=== PATIENT | male | born 1995 | race Hispanic/Latino ===

== ENCOUNTER 2017-10-12 21:40 | Emergency (ER) | payer OTHER ==
[~2017-10-12 21:40] MED LIST: Naloxone 0.4 mg/ml Inj (Adult) IVP STA
--- NOTE | 2017-10-12 21:59 | ED PDOC ---
Arrival/HPI - General Time Seen by Provider: 10/12/17 21:42 Historian: Patient, Other (Friend) - History of Present Illness Narrative History of Present Illness (Text): 10/12/17 21:35 Rikki Wheat is a 22 year old male, whose past medical history includes recreational substance abuse, who presents to the Emergency department brought in by friend status post overdose tonight. Patient snorted what he believed to be cocaine tonight and became drowsy, lethargic, and poorly responsive. Friend subsequently brought in to Emergency room. Limited HPI and ROS secondary to overdose. Symptom Onset: Sudden Symptom Course: Unchanged Severity Level: Severe Activities at Onset: Light Past Medical History - Provider Review Nursing Documentation Reviewed: Yes Family/Social History - Physician Review Nursing Documentation Reviewed: Yes Family/Social History: Unknown Family HX Allergies/Home Meds Allergies/Adverse Reactions: Allergies No Known Allergies Allergy (Unverified 10/12/17 22:19) Home Medications: Home Meds Medication Instructions Recorded Confirmed No Known Home Med 10/12/17 10/12/17 Review of Systems - Review of Systems Systems not reviewed;Unavailable: Altered Mental Status (Drug overdose) Physical Exam Vital Signs Reviewed: Yes Vital Signs Pulse Resp BP Pulse Ox 10/13/17 03:32 58 L 18 110/64 98 10/13/17 01:41 67 14 115/71 100 10/12/17 23:59 52 L 16 118/79 100 10/12/17 22:11 73 12 133/76 100 Temperature: Afebrile Blood Pressure: Normal Pulse: Regular Respiratory Rate: Other (Decreased respirations) Appearance: Positive for: Comfortable Pain Distress: None Mental Status: Positive for: other (Somnolent) - Systems Exam Head: Present: Atraumatic, Normocephalic Pupils: Present: Pinpoint Extroacular Muscles: Present: EOMI Conjunctiva: Present: Normal Mouth: Present: Moist Mucous Membranes Neck: Present: Normal Range of Motion Respiratory/Chest: Present: Other (Decreased respirations). No: Respiratory Distress, Accessory Muscle Use Cardiovascular: Present: Regular Rate and Rhythm, Normal S1, S2. No: Murmurs Abdomen: Present: Normal Bowel Sounds. No: Tenderness, Distention, Peritoneal Signs Back: Present: Normal Inspection Upper Extremity: Present: Normal Inspection. No: Cyanosis, Edema Lower Extremity: Present: Normal Inspection. No: Edema Neurological: Present: GCS=15, CN II-XII Intact Skin: Present: Warm, Dry, Normal Color. No: Rashes Psychiatric: Present: Other (Somnolent) Medical Decision Making ED Course and Treatment: 10/12/17 21:35 Impression: 21 year old male brought in status post overdose. Differential Diagnosis included but are not limited to: overdose vs. substance abuse Plan: -- EKG -- Labs -- Urine drug screen -- Reassess and disposition Progress Notes: Pt seen on arrival to Emergency room. Given emergent dose of Narcan with immediate improvement. Pt awake, alert, and oriented x3 after Narcan. Pt states he received cocaine from his friend, states he was only using drugs recreationally with no intent to harm himself. 10/13/17 02:07 Reviewed EKG, sinus bradycardia at [address]-segment elevations or depressions, no T-wave inversions, normal intervals. 10/13/17 03:56 Pt remains awake, alert following period of observation in the Emergency room. Pt stable for d/c. Pt instructed on avoidance of recreational drug use in the future. Pt verbalizes understanding. - Lab Interpretations Lab Results: 10/12/17 22:30 10/12/17 22:30 Lab Results 10/13/17 02:30: Urine Opiates Screen Negative, Urine Methadone Screen Negative, Ur Barbiturates Screen Negative, Ur Phencyclidine Scrn Negative, Ur Amphetamines Screen Negative, U Benzodiazepines Scrn Negative, U Oth Cocaine Metabols Positive H, U Cannabinoids Screen Positive H 10/12/17 22:30: WBC 14.9 H, RBC 4.72, Hgb 13.8 L, Hct 40.4 L, MCV 85.6, MCH 29.2 , MCHC 34.2, RDW 12.6, Plt Count 180, MPV 10.6 10/12/17 22:30: Sodium 138, Potassium 4.2, Chloride 105, Carbon Dioxide 24, Anion Gap 13, BUN 11, Creatinine 0.9, Est GFR ( Amer) > 60, Est GFR (Non- Af Amer) > 60, Random Glucose 106, Calcium 9.1, Total Bilirubin 2.9 H, AST 21, ALT 32, Alkaline Phosphatase 46, Total Protein 6.7, Albumin 4.0, Globulin 2.7, Albumin/Globulin Ratio 1.5 - EKG Interpretation Interpreted by ED Physician: Yes Type: 12 lead EKG - Medication Orders Current Medication Orders: Discontinued Medications Sodium Chloride (Sodium Chloride 0.9%) 1,000 mls @ 999 mls/hr IV .Q1H1M STA Stop: 10/12/17 23:51 Last Admin: 10/12/17 23:00 Dose: 999 mls/hr eMAR Start Stop Document 10/12/17 23:00 JOL (Rec: 10/12/17 23:36 JOL [id number]) Intravenous Solution Start Date 10/12/17 Start Time 23:00 End Date 10/13/17 End time 00:01 Total Infusion Time 61 Naloxone HCl (Narcan) 2 mg IVP STAT STA Stop: 10/12/17 21:36 Last Admin: 10/12/17 21:40 Dose: 2 mg IVP Administration Document 10/12/17 21:40 RG (Rec: 10/13/17 02:11 RG [id number]) Charges for Administration # of IVP Administrations 1 Ondansetron HCl (Zofran Inj) 4 mg IVP ONCE ONE Stop: 10/12/17 22:52 Last Admin: 10/12/17 23:00 Dose: 4 mg IVP Administration Document 10/12/17 23:00 JOL (Rec: 10/12/17 23:37 JOL [id number]) Charges for Administration # of IVP Administrations 1 - Scribe Statement The provider has reviewed the documentation as recorded by the Scribe Debbie Dumont All medical record entries made by the Scribe were at my direction and personally dictated by me. I have reviewed the chart and agree that the record accurately reflects my personal performance of the history, physical exam, medical decision making, and the department course for this patient. I have also personally directed, reviewed, and agree with the discharge instructions and disposition. Disposition/Present on Arrival - Present on Arrival Any Indicators Present on Arrival: No - Disposition Have Diagnosis and Disposition been Completed?: Yes Diagnosis: Drug overdose Disposition: HOME/ ROUTINE Disposition Time: 03:54 Patient Plan: Discharge Patient Problems: Current Active Problems Problem Status Onset Drug overdose Acute Condition: GOOD Discharge Instructions (ExitCare): Polysubstance Abuse (DC) Additional Instructions: Avoid recreational drug use/follow up with your doctor
[2017-10-12] MEDS ORDERED: Sodium Chloride 0.9% 1,000 ML IV STA (22:51)
[2017-10-13 01:08] LABS: HEMOGLOBIN 13.8 g/dL (14.0-18.0); MEAN CELL VOLUME 85.6 fl (80.0-105.0); MEAN CORPUSCULAR HEMOGLOBIN 29.2 pg (25.0-35.0); MEAN CORPUSCULAR HGB CONC 34.2 g/dl (31.0-37.0); MEAN PLATELET VOLUME 10.6 fl (7.0-11.0); RBC 4.72 10^6/uL (3.5-6.1); RED CELL DISTRIBUTION WIDTH 12.6 % (11.5-14.5); WHITE BLOOD COUNT 14.9 10^3/ul (4.5-11.0)
[2017-10-13 01:19] LABS: ALB/GLOB RATIO 1.5 (1.1-1.8); ALT/SGPT 32 U/L (7-56); AST/SGOT 21 U/L (17-59); BLOOD UREA NITROGEN 11 mg/dL (7-21); CALCIUM 9.1 mg/dL (8.4-10.5); GFR AFRICAN-AMERICAN > 60; GFR NON-AFRICAN AMERICAN > 60
[2017-10-13 03:33] VITALS: BP 110/64; PULSE 58; RESP 18; O2SAT 98
[2017-10-13 03:37] LABS: BARBITURATES, UR NEGATIVE (NEGATIVE); BENZODIAZEPINES, UR NEGATIVE (NEGATIVE); OPIATES, UR NEGATIVE (NEGATIVE); PHENCYCLIDINE, UR NEGATIVE (NEGATIVE)
--- NOTE | 2017-10-13 11:22 | CARD ---
APPROVED REPORT EKG Measurement Heart [id number] <Conclusion> Marked sinus bradycardia
== END 2017-10-13 04:05 | disposition home or self-care (01) ==
LOC: ED 21:40 → EDBD 21:40 → ED 10-13 04:05
DX: T50.994A Poisoning by other drugs, medicaments and biological substances, undetermined, initial encounter (principal); Y92.89 Other specified places as the place of occurrence of the external cause
CPT/HCPCS: 80053; 80324; 80345; 80346; 80349; 80353; 80358; 80361; 83992; 85027; 93005; 96361; 96374; 96375; 99285; J2310; J2405; J7040